=== PATIENT | female | born 1995 | race Two or more races ===

== ENCOUNTER 2020-12-07 00:06 | Emergency (ER) | payer OTHER ==
[~2020-12-07] VITALS: Ht 167.6 cm; Wt 84.0 kg
[2020-12-07] MEDS ORDERED: IBUPROFEN 800 MG TABLET PO ONE (01:45)
[2020-12-07 04:30] VITALS: BP 122/72
== END 2020-12-07 04:55 | disposition home or self-care (01) ==
LOC: EMS 00:09
DX: S93.402A Sprain of unspecified ligament of left ankle, initial encounter (principal); X50.1XXA Overexertion from prolonged static or awkward postures, initial encounter; Y93.89 Activity, other specified; Y92.89 Other specified places as the place of occurrence of the external cause; Y99.8 Other external cause status
CPT/HCPCS: 29515; 99283